=== PATIENT | female | born 1980 | race Caucasian/White ===

== ENCOUNTER 2016-07-09 11:47 | Emergency (ER) | payer OTHER ==
[~2016-07-09] VITALS: Ht 121.9 cm; Wt 64.9 kg
[2016-07-09 12:20] VITALS: BP 145/95
[2016-07-09] MEDS ORDERED: MOTRIN600 MG PO (12:27)
[2016-07-09] MEDS ORDERED: GLUCOPHAGE500 MG PO (12:27)
[2016-07-09] MEDS ORDERED: KEFLEX250 MG PO (12:27)
[2016-07-09] MEDS ORDERED: GLUCOTROL5 MG PO (12:27)
--- NOTE | 2016-07-09 12:31 | NUR ---
Patient to bed 05.
--- NOTE | 2016-07-09 12:35 | NUR ---
SEEN BY ERMD AT BEDSIDE/ASSESSED WOUND
[2016-07-09] MEDS ORDERED: NEOMYCIN/POLYMYXIN/BACITRACIN 0.9 GM/1 PKT TP ONE (12:38)
--- NOTE | 2016-07-09 12:45 | NUR ---
WOUND CLEANED W/ SALINE AND BETADINE,DRESSED WITH NEOSPORIN OINT. BY EMT. PROCEDURE TOLERATED BY PATIENT
[2016-07-09 13:02] VITALS: BP 140/85
--- NOTE | 2016-07-09 13:02 | NUR ---
PATIENT STATED WILL F/U WITH PMD,HAVE APPT. ON SUNDAY
--- NOTE | 2016-07-09 13:02 | NUR ---
Patient discharged with v/s stable. Written and verbal after care instructions given and explained. Patient alert, oriented and verbalized understanding of instructions. Ambulatory with steady gait. All questions addressed prior to discharge. ID band removed. Patient advised to follow up with PMD. Rx of NEOSPORIN OINT given. Patient educated on indication of medication including possible reaction and side effects. Opportunity to ask questions provided and answered.
== END 2016-07-09 13:02 | disposition home or self-care (01) ==
LOC: MED 12:00
DX: Z48.01 Encounter for change or removal of surgical wound dressing (principal)